=== PATIENT | female | born 1990 | race Caucasian/White ===

== ENCOUNTER 2019-11-17 19:13 | Emergency (ER) | payer OTHER, SELFPAY ==
[2019-11-17 19:15] VITALS: BP 114/79; PULSE 71; RESP 18; TEMP 36.4; O2SAT 100; BMI 29.1
[2019-11-17 19:32] LABS: Absolute Lymphocyte Count 3.94 X10^3/uL (0.83-4.51); Absolute Neutrophil Count 10.6 X10^3/uL (2.0-7.7); Basophil# 0.06 X10^3/uL; Basophil% 0.4 % (0-1); Eosinophil# 0.27 X10^3/uL; Eosinophils% 1.7 % (0-5); Hematocrit 39.7 % (37-47); Hemoglobin 13.4 g/dL (12.0-15.0); Lymphocyte # 3.94 X10^3/ul (4.0); Lymphocyte % 24.6 % (19-41); Mean Corp Hgb Conc 33.8 g/dL (32-36); Mean Corpuscular Hgb 29.3 pg (27.0-32.0); Mean Corpuscular Volume 86.7 fL (81-99); Mean Platelet Vol. 8.8 fl (6.2-12.0); Monocyte# 1.13 X10^3/uL; Monocyte% 7.1 % (0-10); NRBC Flagged by Analyzer 0 % (0-5); Neutrophil # 10.55 X10^3/uL (2.7-7.7); Neutrophil % 65.9 % (47-70); Platelet Count 351 K/mm3 (150-450); RBC Distribution Width CV 12.9 % (11.6-14.6); RBC Distribution Width SD 40.3 fl (35.1-43.9); Red Blood Count 4.58 M/mm3 (4.2-5.4)
[2019-11-17 19:42] LABS: Internal QC Validated? YES +Cl - CLEAR BKGD; Pregnancy, Serum, hCG Quali. NEGATIVE Negative
[2019-11-17 19:46] LABS: Anion Gap 6 (5-15); BUN 17 mg/dL (7-18); Calcium,Total 9.6 mg/dL (8.5-10.1); Chloride 109 mmol/L (98-107); Creatinine, Serum 0.68 mg/dL (0.55-1.02); EST Glomerular Filtration Rate 107 mL/min (>60); Est Glom Filt Rate - Afr Amer 129 mL/min (>60); Estimated Creatinine Clearance 107.86 ml/min; Glucose 144 mg/dL (74-106); Potassium 3.2 mmol/L (3.5-5.1); Sodium Level 138 mmol/L (136-145)
--- NOTE | 2019-11-17 20:02 | ED.DCSUM_ITS ---
History of Present Illness Chief Complaint: Abd Pain Informant: Patient Onset: Days Context: Gradual Onset Timing: Waxes and wanes Current Severity: Moderate Maximum Severity: Severe Narrative: Patient presents secondary to right-sided abdominal pain. Pain is been ongoing for the past 3 or 4 days. It waxes and wanes. She denies urinary symptoms. She has had soft stool but no overt diarrhea. She did have nausea and vomiting today secondary to pain. She denies fever or chills. She states she is had similar symptoms 3 or 4 times in the past, but they were not as severe and did not last as long. She was never evaluated for those. Past Medical History - Allergies and Home Meds Allergies/Adverse Reactions: Allergies No Known Allergies Allergy (Verified 11/17/19 19:14) Primary Care Physician: James Toth MD [Primary Care Provider] - Past Medical History: None Lives: Spouse/ Significant Other Review of Systems General: Reports: Chills. Denies: Fever Eyes: Denies: Visual changes - bilaterally ENT: Denies: Bilateral ear pain Cardiovascular: Denies: Chest pain Respiratory: Denies: Dyspnea, Cough Gastrointestinal: Reports: Abdominal pain, Nausea, Vomiting Genitourinary: Denies: Dysuria Musculoskeletal: Denies: Extremity Pain Skin: Denies: Rash Hematologic: Denies: Easy bruising, Easy bleeding Allergy: Denies: Uticaria Physical Exam Vital Signs/Narrative: Vital Signs Temp Pulse Resp BP Pulse Ox 11/17/19 19:15 97.5 F L 71 18 114/79 100 Inital Vital Signs reviewed: Yes General: Well nourished, Well developed Head: Normocephalic ENT: Moist mucous membranes Neck: Supple Cardiovascular: Regular rate, Regular rhythm Respiratory: No distress, CTA bilaterally Abdomen: Soft, Tender - Tenderness in the right lower quadrant.. Negative for: Guarding, Rebound tenderness Extremities: Nontender Skin: Normal color Neurological: Alert, Oriented x3 Psychological: Normal affect Diagnostic/Tx/Re-eval Impressions Abdomen/Pelvis CT 11/17/19 20:02 IMPRESSION: 1. 9 mm right ureterovesical junction stone with severe hydronephrosis. 2. Left adnexal cystic structures, refer to pelvic ultrasonography for definitive characterization. Electronically Signed: Karissa Hidalgo, at 20:49 EDT Tel , Service support , 11/17/19 20:02 Abdomen/Pelvis without Cont [CT] Stat Laboratory Results 11/17/19 11/17/19 11/17/19 19:20 19:20 19:20 WBC 16.0 H RBC 4.58 Hgb 13.4 Hct 39.7 MCV 86.7 MCH 29.3 MCHC 33.8 RDW Std Deviation 40.3 RDW Coeff of Abdirahman 12.9 Plt Count 351 MPV 8.8 Immature Gran % (Auto) 0.300 Neut % (Auto) 65.9 Lymph % (Auto) 24.6 [place] % (Auto) 7.1 Eos % (Auto) 1.7 Baso % (Auto) 0.4 Absolute Neuts (auto) 10.6 H Absolute Lymphs (auto) 3.94 Nucleated RBC % 0 Sodium 138 Potassium 3.2 L Chloride 109 H Carbon Dioxide 23.0 Anion Gap 6 BUN 17 Creatinine 0.68 Estim Creat Clear Calc 107.86 Est GFR (MDRD) Af Amer 129 Est GFR (MDRD) Non-Af 107 BUN/Creatinine Ratio 25.0 H Glucose 144 H Calcium 9.6 Serum , Qual NEGATIVE Urine Color Urine Clarity Urine pH Ur Specific [place] Urine Protein Urine Glucose (UA) Urine Ketones Urine Occult Blood Urine Nitrite Urine Bilirubin Urine Urobilinogen Ur Leukocyte Esterase Urine RBC Urine WBC Ur Squamous Epith Cells Urine Bacteria Urine Mucus 11/17/19 19:52 WBC RBC Hgb Hct MCV MCH MCHC RDW Std Deviation RDW Coeff of Abdirahman Plt Count MPV Immature Gran % (Auto) Neut % (Auto) Lymph % (Auto) [place] % (Auto) Eos % (Auto) Baso % (Auto) Absolute Neuts (auto) Absolute Lymphs (auto) Nucleated RBC % Sodium Potassium Chloride Carbon Dioxide Anion Gap BUN Creatinine Estim Creat Clear Calc Est GFR (MDRD) Af Amer Est GFR (MDRD) Non-Af BUN/Creatinine Ratio Glucose Calcium Serum , Qual Urine Color Yellow Urine Clarity Sl. Cloudy Urine pH 7.0 Ur Specific [place] 1.015 Urine Protein Negative Urine Glucose (UA) Normal Urine Ketones 50 H Urine Occult Blood 50 H Urine Nitrite Negative Urine Bilirubin Negative Urine Urobilinogen Normal Ur Leukocyte Esterase Negative Urine RBC 0-5 SEEN Urine WBC 0 SEEN Ur Squamous Epith Cells 0-5 SEEN Urine Bacteria 0 SEEN Urine Mucus 0 SEEN - Medical Decision Making Patient was initially given morphine and Zofran followed by a dose of Toradol, morphine, and Zofran. At this time patient is comfortable. We discussed hospital admission secondary to the size of her kidney stone versus treatment at home to give her a trial to see if she can pass it. At this time she would prefer to try to go home. Should be given prescriptions and referred to Dr. Veliz. ED Disposition - Plan for ED Patient: Disposition: Home or Assisted Living Diagnosis: Ureterolithiasis Instructions: ED Renal Stone w Colic Prescriptions: Hydrocodone Bitart/Apap 5-325 [[place] 5MG-325MG] 1 tablet PO Q6H PRN PRN 3 Days #10 tablet PRN Reason: Pain Ketorolac [Toradol] 10 mg PO Q6H PRN #14 tablet PRN Reason: Pain Score 4-10/10 Ondansetron [Zofran Odt] 4 mg PO Q8H PRN PRN #10 tablet PRN Reason: Nausea Referrals: Lowell Veliz MD [STAFF PHYSICIAN] - As soon as possible
--- NOTE | 2019-11-17 20:02 | CT_ITS ---
STUDY: CT ABDOMEN AND PELVIS WITHOUT CONTRAST REASON FOR EXAM: Female, 29 years old. Right-sided abdominal pain RADIATION DOSAGE (If Supplied By Facility): CTDIvol = ( 11.01 ) mGy, DLP = ( 517.05 ) mGycm TECHNIQUE: Transaxial images were obtained from the dome of the diaphragm to the symphysis pubis without oral contrast, and without intravenous contrast. Sagittal and coronal images were reconstructed. Individualized dose optimization techniques were used for this CT. COMPARISON: None. FINDINGS: There is a 9 mm stone at the right ureterovesical junction with severe upstream hydroureteronephrosis. Left collecting system is clear. There is possible left renal lesion or scar with punctate peripheral calcifications. Liver, spleen, adrenals and pancreas are intact. There is no intestinal obstruction. There is a 9 cm left adnexal cystic structure, incompletely evaluated. CT/Abdomen/Pelvis without Cont IMPRESSION: 1. 9 mm right ureterovesical junction stone with severe hydronephrosis. 2. Left adnexal cystic structures, refer to pelvic ultrasonography for definitive characterization. Electronically Signed: Karissa Hidalgo, at 20:49 EDT Tel , Service support ,
[2019-11-17 20:08] LABS: Bacteria 0 SEEN /hpf (None Seen); Mucous, Urine 0 SEEN /hpf (<or=2+); White Blood Cells 0 SEEN /hpf (0-5)
[2019-11-17 20:20] LABS: Color, Urine Yellow (Yellow); Glucose, Dipstick Normal (Normal); Ketone-Dipstick 50 mg/dl (Negative); Leukocyte Esterase-Dipstick Negative /ul (Negative); Nitrite-Dipstick Negative (Negative); Occult Blood-Urine 50 /ul (Negative); Protein-Dipstick Negative (Negative); Specific Gravity, Urine 1.015 (1.002-1.030); Urine Bilirubin Dipstick Negative (Negative); Urine Clarity Sl. Cloudy (Clear); Urine Urobilinogen Normal (Normal)
[2019-11-17] MEDS: Ondansetron 4 MG/2 ML Vial IV (20:23)
[2019-11-17] MEDS: Morphine 4 MG/ML Syringe IV ×2 (20:23→21:33)
[2019-11-17] MEDS: 0.9% Normal Saline 1,000 ML 150 ML IV (20:30)
[2019-11-17 20:44] LABS: Red Blood Cells-Urine 0-5 SEEN /hpf (0-5); Squamous Epithelial Cells - UA 0-5 SEEN /hpf (5-10)
[2019-11-17] MEDS: Ketorolac 30 MG/ML Syringe IV (21:32)
[2019-11-17 23:09] VITALS: BP 120/85; PULSE 88; RESP 15; O2SAT 99
== END 2019-11-17 23:39 | disposition home or self-care (01) ==
PROVIDERS: Emergency Provider Emergency Medicine; PCP Family Medicine
DX: N13.2 Hydronephrosis with renal and ureteral calculous obstruction (principal)
CPT/HCPCS: 74176; 80048; 81001; 84703; 85025; 96361; 96374; 96375; 96376; 99283; J7030; J2405